=== PATIENT | female | born 1940 | race Caucasian/White ===

== ENCOUNTER 2016-09-19 07:50 | Outpatient (CLI) | payer OTHER ==
[2012-08-17 10:36] VITALS: BP 154/93
[2016-09-19 08:41] LABS: eGFR (African) > 60; eGFR (Non-African) > 60
== END 2016-09-19 07:52 ==
LOC: LAB 07:50
PROVIDERS: ATTEND Family Medicine
DX: E03.9 Hypothyroidism, unspecified (principal)
CPT/HCPCS: 36415; 80053; 84443

== ENCOUNTER → 2017-09-01 | Outpatient (CLI) | payer OTHER ==
[2012-08-17 10:36] VITALS: BP 154/93
[2017-09-01 09:54] LABS: eGFR (African) > 60; eGFR (Non-African) > 60
== END ==
LOC: LAB 09:02
PROVIDERS: ATTEND Family Medicine
DX: E03.9 Hypothyroidism, unspecified (principal); I10 Essential (primary) hypertension
CPT/HCPCS: 36415; 80053; 84443

== ENCOUNTER 2017-09-21 08:20 | Outpatient (CLI) | payer OTHER ==
[2012-08-17 10:36] VITALS: BP 154/93
== END 2017-09-21 08:21 ==
LOC: LAB 08:20
PROVIDERS: ATTEND Family Medicine
DX: I10 Essential (primary) hypertension (principal)
CPT/HCPCS: 36415; 80061

== ENCOUNTER 2017-10-30 08:18 | Outpatient (CLI) | payer OTHER ==
[2012-08-17 10:36] VITALS: BP 154/93
[2017-10-30 09:19] LABS: eGFR (African) > 60; eGFR (Non-African) > 60
== END 2017-10-30 08:20 ==
LOC: LAB 08:18
PROVIDERS: ATTEND Family Medicine
DX: E03.9 Hypothyroidism, unspecified (principal)
CPT/HCPCS: 36415; 80053; 84443

== ENCOUNTER 2018-08-22 07:52 | Outpatient (CLI) | payer OTHER ==
[2012-08-17 10:36] VITALS: BP 154/93
[2018-08-22 08:37] LABS: eGFR (Non-African) > 60
== END 2018-08-22 07:53 ==
LOC: LAB 07:52
PROVIDERS: ATTEND Family Medicine
DX: I10 Essential (primary) hypertension (principal); E03.9 Hypothyroidism, unspecified
CPT/HCPCS: 36415; 80053; 80061; 84443

== ENCOUNTER 2018-11-24 10:11 | Emergency (ER) | payer OTHER ==
[2018-11-24 10:36] LABS: EOSINOPHILS % 2.2 % (0.0-6.8); MEAN CORPUSCULAR HEMOGLOBIN 30.8 pg (28.0-34.0); MONOCYTES % 5.4 % (0.0-11.0)
[2018-11-24 10:37] LABS: BASOPHILS % 0.9 % (0.0-1.5)
--- NOTE | 2018-11-24 10:42 | Diagnostic Imaging Report ---
KEMI GOLDEN [facility] [address] [facility] [address] [place], [place]. [address] Report Submission Date: Nov 24, 2018 10:35:48 AM CDT Patient Study Name: KENROY SAM Date: Nov 24, 2018 10:20:57 AM CDT Modality Type: DX Gender: F Description: CHEST 1VIEW : 38 Institution: [facility] Physician: KEMI GOLDEN Portable chest Clinical history: Left-sided chest pain. Findings: Examination of the chest in single portable AP view demonstrates the lungs to be clear. Cardiac silhouette is within normal limits and the aorta is atherosclerotic. Monitor leads superimpose the chest. Impression: 1. Aortic atherosclerosis and left ventricular prominence. 2. No active disease. Electronically signed on Nov 24, 2018 10:35:48 AM CDT by: Fortino MARES
[2018-11-24] MEDS: ASPIRIN 81 MG CHEW TAB PO ONE (10:44)
--- NOTE | 2018-11-24 10:46 | ED Physician Documentation ---
Chest Pain - HISTORIAN Historian: patient - HPI Stated Complaint: heart pain Chief Complaint: Chest Pain Onset: hours (4) Timing: other (she had a "twinge" at 0600 and did take a nitro so she was ok then another "twinge" about 30 min later so took a second nitro and she did call her friend who came over and encouraged her to take a baby asprin. She has had one more episode of a "twinge" of pain (mid to left chest) denies any recent injury. She states she had this "twinge" and felt a little weak and tired. Denies any radiation or nausea. Denies any other complaints. She has had this checked out in the past with stressful situations ) Duration: waxing, waning Last known Well Date: 11/24/18 Last Known Well Time: 05:00 Context: rest Severity: mild Quality: other (she is only able to describe the pain "twinge" ) Chest Pain Radiation: no radiation Chest Pain Signs/Symptoms: weakness. denies: nausea, vomiting, diaphoresis, cool extremities, dizziness, dyspnea, tachypnea, tachycardia, hypotension, p alpitations Worsened By: nothing Relieved By: nothing Further Comments: yes (reports a twinge of pain around 0600 so took 1 nitro and then the pain "twinge" occured again aroun 0630 with another nitro and she does feel that helped the pain. She denies any shortness of air or pain with movement. Denies any injury) - ROS CONST: none - PAST HX [place] risk factors: hypertension GI disease: none Immunizations: UTD Allergies/Adverse Reactions: Allergies Allergy/AdvReac Type Severity Reaction Status Date / Time Penicillins Allergy Intermediate Verified 11/24/18 10:34 Home Medications: Ambulatory Orders Medication Instructions Recorded Amlodipine Besylate/Benazepril 1 each PO DAILY 11/24/18 [Lotrel 10-20 mg Capsule] Oxybutynin Chloride [Ditropan Xl] 10 mg PO DAILY 11/24/18 Thyroid,Pork [[place] Thyroid] 60 mg PO DAILY 11/24/18 - SOCIAL HX Smoking History: non-smoker Alcohol Use: none Drug Use: none - FAMILY HX Family HX: none - VITAL SIGNS Vital Signs: Vital Signs Temp Pulse Resp BP Pulse Ox 98.6 F 72 19 182/79 97 11/24/18 10:30 11/24/18 10:30 11/24/18 10:30 11/24/18 10:30 11/24/18 10:30 - REVIEWED ASSESSMENTS Nursing Assessment Reviewed: Yes Vitals Reviewed: Yes Progress - Progress Progress: 1140: results and plan discussed with pt and family - they are agreeable DG ED Results Lab/Radiology - Lab Results Lab Results: Lab Results 11/24/18 10:20 WBC 6.60 K/ul K/ul (4.00-12.00) RBC 4.37 M/ul M/ul (3.90-5.20) Hgb 13.5 g/dL g/dL (11.5-16.0) Hct 39.4 % % (34.5-46.5) MCV 90.0 fl fl (80.0-100.0) MCH 30.8 pg pg (28.0-34.0) MCHC 34.1 g/dL g/dL (30.0-36.0) RDW 14.1 % % (11.3-14.3) Plt Count 253 K/mm3 K/mm3 (130-400) Neut % (Auto) 59.8 % % (39.0-79.0) Lymph % (Auto) 31.7 % % (16.0-50.0) [place] % (Auto) 5.4 % % (0.0-11.0) Eos % (Auto) 2.2 % % (0.0-6.8) Baso % (Auto) 0.9 % % (0.0-1.5) Neut # (Auto) 4.0 # k/uL # k/uL (1.4-7.7) Lymph # (Auto) 2.1 # k/uL # k/uL (0.6-4.0) [place] # (Auto) 0.4 # k/uL # k/uL (0.0-0.9) Eos # (Auto) 0.2 # k/uL # k/uL (0.0-0.6) Baso # (Auto) 0.1 # k/uL # k/uL (0.0-0.5) - Radiology Radiology Impressions: Portable chest Clinical history: Left-sided chest pain. Findings: Examination of the chest in single portable AP view demonstrates the lungs to be clear. Cardiac silhouette is within normal limits and the aorta is atherosclerotic. Monitor leads superimpose the chest. Impression: 1. Aortic atherosclerosis and left ventricular prominence. 2. No active disease. Electronically signed on Nov 24, 2018 10:35:48 AM CDT by: Fortino Mullins - Orders Orders: ED Orders Category Date Time Status Continuous EKG monitoring Q30M Care 11/24/18 10:21 Active Continuous Pulse Oximetry Q30M Care 11/24/18 10:[address] IV Lock 1T Care 11/24/18 10:21 Active CHEST 1VIEW [RAD] Stat Exams 11/24/18 Completed CBC/PLATELET/DIFF Routine Lab 11/24/18 10:20 Completed CMP Routine Lab 11/24/18 10:20 Received TROPONIN I Stat Lab 11/24/18 10:20 Received Aspirin [Richard] Med 11/24/18 10:21 Discontinued 324 mg PO NOW ONE Oxygen Daily Oxygen 11/24/18 10:30 Ordered EKG WITH COMPARISON Stat Ther 11/24/18 10:21 Ordered Chest Pain Physical Exam - EXAM General Appearance: no acute distress, alert EENT: eye inspection normal, no signs of dehydration Neck: nml inspection Respiratory: no resp. distress, chest non-tender, nml breath sounds CVS: reg. rate & rhythm, pulses equal Abdomen: soft, normal bowel sounds, no distension, non-tender Skin: warm/dry Extremities: non-tender, normal range of motion Neuro: oriented X3 Discharge Clincal Impression: Chest pain Qualifiers: Chest pain type: unspecified Qualified Code(s): R07.9 - Chest pain, unspecified Referrals: Abdirahman Deleon MD [Primary Care Provider] - 2 Days Comments: 1. Continue home meds 2. Follow up with PCP in 2-4 days 3. Return to ER for any increasing concerns Condition: Stable Disposition: 01 HOME, SELF-CARE Decision to Admit: NO Date of Decison to Admit: 11/24/18 Decision Time: 11:46
[2018-11-24 10:56] LABS: eGFR (Non-African) > 60
[2018-11-24] MEDS: ALPRAZolam 0.5 MG TABLET PO ONE (11:12)
[2018-11-24] MEDS: KETOROLAC TROMETHAMINE 30 MG/1ML VIAL IV ONE (11:12)
[2018-11-24 12:03] VITALS: BP 152/65
== END 2018-11-24 12:03 | disposition home or self-care (01) ==
LOC: ED 10:11
DX: R07.9 Chest pain, unspecified (principal)
CPT/HCPCS: 36415; 71045; 80053; 84484; 85025; 93005; 96374; 99283; 99285; J1885; S1016

== ENCOUNTER 2019-01-31 12:45 | Outpatient (CLI) | payer OTHER ==
--- NOTE | 2019-01-31 13:32 | Diagnostic Imaging Report ---
ANNAMARIE VERDE [facility] [address] [facility] [address] [place] [address]. [id number] Report Submission Date: Jan 31, 2019 1:12:42 PM CDT Patient Study Name: KENROY SAM Date: Jan 31, 2019 12:47:49 PM CDT Modality Type: DX Gender: F Description: ANKLE 3 VIEWS OR MORE : 38 Institution: [facility] Physician: ANNAMARIE VERDE Left ankle History: Status post fall. Fibular fracture. Three views of the left ankle were obtained and comparison made with January 16, 2019. There is a slightly greater degree of distraction at the spiral fracture site of the distal fibula. No healing bone formation is identified. The talar dome and ankle mortise are intact. There is a moderate-sized plantar calcaneal spur. There is spurring along the dorsum of the midfoot. Impression: Slightly greater distraction at the distal fibular fracture site. No healing bone formation is identified. Electronically signed on Jan 31, 2019 1:12:42 PM CDT by: Sudha MARSE
== END 2019-01-31 12:47 ==
LOC: RAD 12:45
PROVIDERS: ATTEND Family Medicine
DX: S82.822D Torus fracture of lower end of left fibula, subsequent encounter for fracture with routine healing (principal); X58.XXXD Exposure to other specified factors, subsequent encounter
CPT/HCPCS: 73610

== ENCOUNTER 2019-02-18 12:57 | Outpatient (CLI) | payer OTHER ==
--- NOTE | 2019-02-18 18:06 | Diagnostic Imaging Report ---
ALLISON KAPADIA [facility] [address] [facility] [address] [address] Report Submission Date: Feb 18, 2019 4:22:51 PM CDT Patient Study Name: KENROY SAM Date: Feb 18, 2019 1:04:29 PM CDT Modality Type: DX Gender: F Description: ANKLE 3 VIEWS OR MORE : 38 Institution: [facility] Physician: ALLISON KAPADIA Left ankle 3 views Clinical history: Fracture There is a healing oblique spiral fracture of the distal left fibula. Bony fragments are in good position. Fracture line remain clearly visible. Posttraumatic osteopenia is noted. No change in the position of the bony fragments in January 31, 2019 Impression: Healing fracture of the distal left fibula, fracture lines remain visible Electronically signed on Feb 18, 2019 4:22:51 PM CDT by: Abdirahman MARES
== END 2019-02-18 13:00 ==
LOC: RAD 12:57
PROVIDERS: ATTEND Family Medicine
DX: S82.832D Other fracture of upper and lower end of left fibula, subsequent encounter for closed fracture with routine healing (principal); X58.XXXD Exposure to other specified factors, subsequent encounter
CPT/HCPCS: 73610

== ENCOUNTER 2019-03-25 08:24 | Outpatient (CLI) | payer OTHER ==
--- NOTE | 2019-03-25 08:59 | Diagnostic Imaging Report ---
ANNAMARIE VERDE [facility] [address] [facility] [address] [address] Report Submission Date: Mar 25, 2019 8:53:28 AM CDT Patient Study Name: KENROY SAM Date: Mar 25, 2019 8:28:45 AM CDT Modality Type: DX Gender: F Description: ANKLE 3 VIEWS OR MORE : 38 Institution: [facility] Physician: ANNAMARIE VERDE Exam: Left ankle. History: Follow-up fracture. AP, lateral oblique view of the left ankle are submitted and compared to study dated February 18, 2019. No change in position the alignment of a oblique fracture through the distal fibula is noted. Mild callus formation at the fracture site is noted. No acute fractures are seen. Spur off the plantar surface of the calcaneus is noted. Impression: Healing distal fibular fracture unchanged in position and alignment. Heel spur. Electronically signed on Mar 25, 2019 8:53:28 AM CDT by: Christiano MARES
== END 2019-03-25 08:26 ==
LOC: RAD 08:24
PROVIDERS: ATTEND Family Medicine
DX: S82.832D Other fracture of upper and lower end of left fibula, subsequent encounter for closed fracture with routine healing (principal); X58.XXXD Exposure to other specified factors, subsequent encounter
CPT/HCPCS: 73610